=== PATIENT | female | born 1960 | race Caucasian/White ===

== ENCOUNTER → 2023-09-06 09:12 | Outpatient (REF) | payer BC, SELFPAY | LOC: HWWDC 09:12 | PROVIDERS: ATTENDING PHYSICIAN Family Medicine; REFERRING PHYSICIAN Obstetrics & Gynecology | DX: Z12.31 Encounter for screening mammogram for malignant neoplasm of breast (principal) | CPT/HCPCS: 77063; 77067 ==

== ENCOUNTER → 2023-09-09 09:25 | Outpatient (REF) | payer BC, SELFPAY | LOC: HWRAD 09:25 | PROVIDERS: ATTENDING PHYSICIAN Obstetrics & Gynecology; FAMILY PHYSICIAN Family Medicine | DX: Z78.0 Asymptomatic menopausal state (principal) | CPT/HCPCS: 77080 ==

== ENCOUNTER → 2023-10-06 11:32 | Outpatient (REF) | payer BC, SELFPAY | LOC: HWRAD 11:32 | PROVIDERS: ATTENDING PHYSICIAN Family Medicine; FAMILY PHYSICIAN Family Medicine | DX: R07.89 Other chest pain (principal) | CPT/HCPCS: 71046 ==

== ENCOUNTER 2023-10-06 13:27 | Emergency (ER) | payer BC, SELFPAY ==
[2023-10-06 13:44] VITALS: BP 128/78
[2023-10-06 14:12] LABS: % Basophils 1.3 % (0-2); % Eosinophils 2.2 % (0-6); % Immature Granulocytes 0.3 % (0-0.5); % Lymphocytes 34.1 % (20.5-51.1); % Monocytes 7.4 % (1.7-9.3); % Neutrophils 54.7 % (42.2-75.2); Absolute Basophils 0.1 10^3/uL (0-0.2); Absolute Eosinophils 0.2 10^3/uL (0-0.7); Absolute Monocytes 0.6 10^3/uL (0.1-0.6); Absolute Neutrophils 4.7 10^3/uL (1.4-6.5); Hematocrit 39.9 % (37.0-47.0); Hemoglobin 13.4 g/dL (12.0-16.0); Mean Corp Hgb Conc. 33.6 g/dL (33.0-37.0); Mean Corpuscular Hgb 28.5 pg (27.0-31.0); Mean Corpuscular Volume 84.7 fL (81.0-99.0); Mean Platelet Volume 10.4 fL (7.4-10.4); Nucleated Red Blood Cells % 0 %; Platelet Count 293 10^3/uL (130-400); Red Blood Cell Count 4.71 10^6/uL (4.20-5.40); Red Cell Dist. Width 13.8 % (11.5-14.5); White Blood Cell Count 8.7 10^3/uL (4.8-10.8)
[2023-10-06 14:27] LABS: ALT (SGPT) 18 U/L (0-35); AST (SGOT) 27 U/L (14-36); Albumin 4.2 g/dl (3.5-5.0); Alkaline Phosphatase 114 U/L (38-126); Blood Urea Nitrogen 20 mg/dl (7-17); Calcium 9.8 mg/dl (8.4-10.2); Carbon Dioxide 26 mmol/L (22-30); Chloride 104 mmol/L (98-107); Glucose 100 mg/dl (70-99); Sodium 139 mmol/L (135-145); Total Bilirubin 0.5 mg/dl (0.2-1.3); Total Protein 7.8 g/dl (6.3-8.2); eGFR > 60.00
[2023-10-06 14:37] LABS: Troponin I 0.018 ng/ml
[2023-10-06 14:43] LABS: D-Dimer < 0.27 ug/mlFEU (0.00-0.50)
--- NOTE | 2023-10-06 15:25 | ED.GENMED ---
History of Present Illness
General
Chief Complaint: Chest Pain
Source: patient
Exam Limitations: none
Time Seen by Provider: 10/06/23 15:06
Nursing documentation reviewed up to this point in time: agreed with
Travel History
Have you had any contact with someone who has COVID-19?: No
Do you have any symptoms of coronavirus? Fever > 100 degrees, chills, cough, shortness of breath, sore throat, loss of taste or smell, muscle aches, or headache?: No
History of Present Illness
History of Present Illness:
Patient is a 63-year-old for presenting for evaluation of intermittent chest pain over the past 2 weeks. Patient states she initially noticed the chest pain while on a drive down to [place] about 2 weeks ago, but has persisted. She describes the
pain as a dull, pressure sensation spanning across her entire chest with some radiation into her right mid back. She denies any pleuritic, exertional, sharp, or tearing component of pain. This pain is not associated with any shortness of breath,
lightheadedness, nausea, vomiting, or diaphoresis. She does believe that pain seems to be worse while she is sitting. Pain is intermittent in nature, occurring a few times a day and lasting for about an hour. At this moment patient is in no
discomfort.
Patient was seen by her primary care provider yesterday where he ordered some blood work, D-dimer, chest x-ray.
She denies any pain in lower legs. She denies any recent surgeries. Patient was on a long car ride from [facility] about 2 weeks ago when the pain initially started. She did get up and walk around multiple times throughout drive.
She has no personal or family history of blood clots or clotting disorders. She has no personal or family history of early cardiac disease, heart attack.
Phy Exam
Physical Exam
Physical Exam:
General: In no apparent distress, nontoxic appearing
Vitals: Vital signs stable, afebrile
HEENT: Atraumatic, normocephalic; pupils equal round and reactive to light bilaterally, protecting airway
Neck: appears supple, no JVD, trachea midline
CV: Regular rate and rhythm, heart sounds normal, no evidence of cyanosis; mild tenderness to palpation to anterior chest without any obvious step-offs or deformities
Resp: In no apparent respiratory distress, lungs clear bilaterally without any wheezing, rales, rhonchi; O2 saturation 97 on room air
Abd: Soft, nontender
Extremities: No evidence of cyanosis or edema; bilateral calves without any edema, erythema, tenderness; DP pulses palpable and equal bilateral
Neuro: alert and oriented x 3; grossly intact
Psych: Normal affect
Skin: Intact, no rashes
Scores
Heart Score for Chest Pain Patients
STEMI patient?: No
History: Slightly or Non-Suspicious
ECG: Normal
Age: >45 - <65 years
Risk Factors: 1 or 2 Risk Factors
Troponin: </= Normal Limit
Heart Score for Chest Pain Patients: 2
Heart Score Risk: 2.5% MACE over next 6 weeks
Course
Orders/Labs/Results
Orders:
Orders
10/06/23 13:42
Electrocardiogram (*1) Urgent
Reason for Study: Shortness of Breath
10/06/23 13:43
EKG- Treatment ONCE
10/06/23 13:57
CMP [Comprehensive Metabolic Panel] Urgent
Complete Blood Count/With Diff Urgent
D-Dimer Urgent
Troponin I Urgent
Abnormal Lab Results
10/06/23
13:57
BUN 20 H mg/dl
(7-17)
Glucose 100 H mg/dl
(70-99)
10/06/23 13:57
10/06/23 13:57
Vital Signs
Initial and Last Documented VS:
Initial Vital Signs
Temp Pulse Resp BP Pulse Ox
97.7 F 70 16 128/78 97
10/06/23 13:44 10/06/23 13:44 04/18/24 13:44 10/06/23 13:44 10/06/23 13:44
Last Documented Vital Signs
Temp Pulse Resp BP Pulse Ox
97.7 F 70 16 128/78 97
10/06/23 13:44 10/06/23 13:44 10/06/23 13:44 10/06/23 13:44 10/06/23 13:44
MDM/Problems Addressed
Differential Diagnosis Includes:
Muscular strain, costochondritis, pericarditis, myocarditis, pneumonia, doubt ACS, dissection, pulmonary embolism
MDM/Problems Addressed:
Patient is a 63 year old female presenting for evaluation of intermittent chest discomfort over the past 2 weeks. No pleuritic or exertional component. No associated shortness of breath. Seen by PCP today where chest x-ray was ordered outpatient.
Vital signs are stable on arrival. Exam as above. Patient is extremely well-appearing, in no apparent distress. Patient does have reproducible tenderness along anterior chest wall. Heart rate regular. Lungs clear. Patient is in no apparent
respiratory distress, saturation 97 on room air. No signs of DVT on exam.
Given history and clinical exam�suspicion for acute cardiac emergencies extremely low. Given reproducible nature of pain suspect this is likely musculoskeletal in origin.
Labs obtained in triage without any clinically significant abnormalities. Initial troponin negative. Given pain has been intermittent over the past 2 weeks�this is sufficient to rule out acute AK. D-dimer is negative. Reviewed outpatient chest
x-ray report which shows no evidence of pneumonia, pneumothorax, other acute disease. There were mild thoracic degenerative changes seen which may be contributing to patient's mid back pain.
Patient is clinically very stable. Workup here has been entirely negative. Patient stable for discharge with close return precautions, cardiology follow-up. Lengthy discussion with patient regarding return precautions. Patient comfortable with
plan. All questions answered
Chronic conditions affecting care:
N/A
Acute Exacerbation and/or Progression of Chronic Illness:
N/A
*Pulse Oximetry
Patient hypoxic: no
*EKG
Interpreted by ED Provider?: Yes
EKG Intrepretation Date: 10/06/23
Interpretation: normal
Comparison EKG: no comparison EKG present
Heart Rate: 71
Rate: normal
Rhythm: sinus
*Advertising Intern Interpretation
Rate: normal
Interpretation: normal
Heart Rate: 68
Rhythm: sinus
*Critical Care Note
Total Time (30-74mins, 75-104mins- exclusive of procedures): Not Applicable
Data Reviewed
Review of Other/Old Records Reveals: Radiology Studies (Outpatient chest xray performed today)
Source: patient and previous radiology exam
ED Attending Note
-
Portions of this chart may have been created with voice recognition software.� Occasional wrong word or��sound alike� substitutions may have occurred due to the inherent limitations of voice recognition software.
Discharge Plan
Departure
Patient Disposition: Home (Routine Discharge)
Date of Disposition: 10/06/23
Time of Disposition: 15:47
Patient with high blood pressure during this ER visit?: No
Condition: Good
Covid-19: Not Applicable
Discharge Problem:
Anterior chest wall pain
Instructions: Chest Pain (DC), Chest Pain DCA Follow Up
Referrals:
Theresa,Shanae, DO [Active] - Call in 1-3 days for appt
Activity Restrictions/Additional Instructions:
-Return to the emergency department with any chest pain, shortness of breath, high fevers, severe back pain, chest pain worse with exertion or deep breathing associated with nausea, dizziness, sweating; intractable nausea/vomiting, worsening in
current symptoms, or any other concerns
-You can take Motrin, Tylenol as needed for discomfort. Stay well-hydrated
-As discussed�you should follow-up with cardiology. I provided them information you should hear from them in the next 2 days to schedule an appointment.
-Follow-up with primary care for further evaluation/management
Interventions
Interventions:
*Risk Screen - Suicide Last Done: 10/06/23 15:41
*General Assessment Last Done: 10/06/23 15:41
*Neglect/Abuse Screening Last Done: 10/06/23 15:41
ED- Fall Risk Assessment Last Done: 10/06/23 15:41
*ED COVID-19 Vaccine History Last Done: 10/06/23 13:44
ED- Cardiac Assessment Last Done: 10/06/23 15:41
Discharge Date and Time
Print Language: MONTENEGRIN
[2023-10-06 15:36] VITALS: BP 144/85
== END 2023-10-06 16:19 | disposition home or self-care (01) ==
LOC: EMR 13:27
PROVIDERS: Emergency Medicine; EMERGENCY PHYSICIAN Emergency Medicine
DX: R07.89 Other chest pain (principal)
CPT/HCPCS: 99284; 80053; 84484; 85025; 85379; 93005

== ENCOUNTER → 2024-01-30 06:29 | Day surgery (SDC) | payer BC, SELFPAY | LOC: GI 06:29 | PROVIDERS: ATTENDING PHYSICIAN Internal Medicine; FAMILY PHYSICIAN Family Medicine | DX: Z12.11 Encounter for screening for malignant neoplasm of colon (principal); Z80.0 Family history of malignant neoplasm of digestive organs; K60.3 Anal fistula; K57.30 Diverticulosis of large intestine without perforation or abscess without bleeding | CPT/HCPCS: G0105 ==